=== PATIENT | male | born 1955 | race Caucasian/White ===

== ENCOUNTER 2019-06-17 15:12 | Inpatient (IN) ==
--- NOTE | 2019-06-17 15:51 | Emergency Department Note ---
History of Present Illness General Chief complaint: Abdominal Pain Stated complaint: lower abd pain Time Seen by Provider: 06/17/19 15:18 History of Present Illness Maximum Pain Intensity: 2 63-year-old male who was transported to the emergency department via [facility] ambulance for evaluation of intermittent left lower quadrant abdominal pain. The patient was administered Toradol 15 mg and Zofran 4 mg IVP during transportation, and the patient currently denies any discomfort. The patient reports that his pain is likely secondary to constipation. The patient has not had a bowel movement in the past 2 days. The patient reports that he was treated for an upper respiratory infection 1 month ago and developed an acute thyroiditis. The patient reports that he was treated for his condition, which threw him into a hypothyroid state. His last TSH was 58. He is currently following with Dr. Reyes, skip hoist operator at [facility], who recommended that he avoid treatment with medications for now to see if the patient's thyroid state normalizes. The patient reports that one of the side effects of his condition is constipation that he has been dealing with now a few months. The patient most recently tried a castor oil suppository without relief. He reports using a Dulcolax stool softener 2 days ago that actually soften the stool enough that he had a decent bowel movement. The patient reports that he had a colonoscopy performed 2 to 3 years ago that was completely normal. This was performed by Dr. Nath. The patient is requesting that we minimize cost as much as possible, hopefully to just get an x-ray of the abdomen to confirm that he does have constipation. Home Medications Home Medications Medication Instructions Recorded Confirmed Type cholecalciferol (vitamin D3) 1,000 1,000 units PO QAM 05/12/19 06/17/19 History unit (25 mcg) tablet iron 159 mg PO QAM 06/17/19 06/17/19 History multivitamin 1 tab PO QAM 06/17/19 06/17/19 History ondansetron 4 mg PO Q6H PRN #10 tab 06/17/19 Rx oxycodone 5 mg PO Q4H PRN #15 tab 06/17/19 Rx tamsulosin [Flomax] 0.4 mg PO DAILY #7 cap 06/17/19 Rx turmeric 400 mg PO QAM 06/17/19 06/17/19 History nitrofurantoin macrocrystal 100 mg PO HS #3 cap 06/18/19 Rx phenazopyridine [Pyridium] 100 mg PO TID PRN #18 tab 06/18/19 Rx Allergies Allergy/AdvReac Type Severity Reaction Status Date / Time Quinolones Allergy Mild JOINT PAIN Unverified 05/12/19 10:04 SULFA Allergy Severe unknown Uncoded 05/12/19 10:04 Past Med/Surg History Medical History Abdominal pain History of thyroiditis Hydronephrosis of left kidney Hypothyroidism Surgical History History of colonoscopy History of nasal septoplasty History of oral surgery History of tonsillectomy Family History Family/Other Congestive heart failure Colorectal cancer Father Cardiac disorder Lung cancer Bladder cancer Brother Kidney stones Social History Preferred Language: [place]ian Communication Ability: Effective 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 Beliefs That Will Affect Care: None marital status: Current Living Situation: Spouse current occupational status: retired Feels Safe at Home: Yes Smoking Status: Never smoker Hx Alcohol Use: No Hx Substance Use: No Review of Systems 10 system review was performed and was negative except for pertinent positives and negatives as indicated in history of present illness Physical Exam Vital Signs Vital Signs - 24 hr 06/17/19 20:30 06/17/19 22:03 06/17/19 22:07 Pulse Rate [Finger] 68 71 Pulse Rhythm [Finger] Regular Regular Pulse Strength [Finger] Normal Normal Respiratory Rate 18 20 Respiratory Effort / Characteristics Non-Labored Spontaneous Non-Labored Spontaneous Respiratory Depth Normal Normal Respiratory Pattern Regular Regular Blood Pressure [Right Arm] 152/86 H 130/86 Blood Pressure Mean [Right Arm] 108 100 Blood Pressure Position [Right Arm] Lying Pulse Oximetry 99 99 88 L Oxygen Delivery Method Room Air Room Air Room Air Oxygen Flow Rate 06/17/19 22:08 Pulse Rate [Finger] Pulse Rhythm [Finger] Pulse Strength [Finger] Respiratory Rate Respiratory Effort / Characteristics Respiratory Depth Respiratory Pattern Blood Pressure [Right Arm] Blood Pressure Mean [Right Arm] Blood Pressure Position [Right Arm] Pulse Oximetry 97 Oxygen Delivery Method Nasal Cannula Oxygen Flow Rate 2 CONSTITUTIONAL: Healthy and well nourished. Alert and oriented X 3. Patient does not appear in any acute distress on my exam. HEENT: Normocephalic, atraumatic. Pupils equal, round and reactive. No scleral icterus or conjunctival injection/pallor. NECK: Full active range of motion without discomfort. LYMPHATICS: No cervical chain adenopathy. RESPIRATORY: Clear to auscultation bilaterally with no wheezing, crackles, rhonchi or stridor. CARDIOVASCULAR: Regular rate and rhythm with no murmurs, rubs or gallops. GASTROINTESTINAL: Bowel sounds present in all quadrants. Patient does not have any abdominal tenderness to palpation on exam. Negative CVA tenderness. MUSCULOSKELETAL: Full range of motion of all joints without discomfort. Negative logroll and straight leg raise of the left lower extremity. INTEGUMENTARY: No rash or other significant dermatologic conditions noted. HEMATOLOGIC: No ecchymosis or petechiae. PSYCHIATRIC: Positive affect. NEUROLOGIC: No focal neurologic deficits noted. Course Patient history and physical exam were performed. Nurse's notes were reviewed. Vital signs were reviewed and were normal. As indicated in HPI, the patient was transported here via [facility] ambulance. He was administered IV Toradol and Zofran, and denied any discomfort or nausea at the time of my evaluation. The patient has requested limiting work-up initially to just an x-ray. I did explain other possible conditions that could cause this pain, including diverticulitis, kidney stones or other acute etiologies in the abdomen. I explained that laboratory studies would certainly give me a little more detailed picture of the condition, but agreed that an x-ray could be performed to rule out significant constipation. I did request that the patient provide a urine sample that we can at least rule out hematuria or infection. An abdomen obstruction series does show some stool within the ascending colon, however no significant constipation was noted. Patient also has multiple left-sided phleboliths, and the radiologist could not rule out a possible 5 mm distal left ureteral calculus. At this point, I returned to discuss findings with the patient. He reported that the pain was coming back, and requested additional medication. The patient did not want anything strong, and was therefore administered IV Tylenol. The patient had not provided a urine sample, therefore I did ask him to do so, and the patient was successful in providing a sample. Urine dip was concerning for hematuria and infection. Urine was sent to the lab for microscopy. At this po int, I explained concerning differentials of an infected kidney stone, and recommended additional lab work and an ultrasound of the kidney. The patient was agreeable to this work-up when I discussed the possibilities. Labs were drawn. Official urinalysis shows glucosuria, ketonuria and hematuria without nitrites, leukocyte esterase or bacteria. Review of additional labs shows a mild leukocytosis and creatinine of 1.66. Glucose is also elevated at 156, and potassium is slightly low at 3.4. Retroperitoneal ultrasound confirms left hydronephrosis with a suspected 5 mm distal left ureteral calculus. The patient's nurse did call me, indicating that the patient's IV site infiltrated with the IV Tylenol, and the patient was complaining of worsening pain. At this point, the patient was administered IV morphine. Within 20 minutes of administration of this medication, I reevaluated the patient, and he reported no pain relief, and in fact reported the pain was getting worse. At this point, the patient was administered IV Dilaudid. After approximately 30 minutes, reassessment did not show any significant discomfort. Because it is late and pharmacies are closed, the patient was administered Flomax. I did explain that the patient's initial x-ray showed a possible right mid lung density, and stated that the radiologist recommended oblique views for further characterization. The patient is requesting that we do that in the emergency department as well. Chest x-ray with oblique views did not show any pulmonary nodules. Upon return, the patient reported progressively worsening pain and nausea yet again. He was administered an additional dose of IV Dilaudid. The nurse then called to tell me that he was hypoxic as well in the mid 80s. O2 was administered via nasal cannula at 4 L/min was applied. The patient was saturating in the upper 80s and low 90s. The patient was also administered IV Zofran as he was vomiting as well. It is noted that the patient was not hypote nsive. At this point, the case was further discussed with Dr. Barnes, ED attending physician, who agrees with observation status for intractable renal colic secondary to a distal left ureteral stone, as well as hypoxia. The case was further discussed with Dr. Linares, [facility] hospitalist, who came to the emergency department for further evaluation. Please see hospitalist dictations for further treatment and final disposition. Administered Medications Discontinued Medications Fentanyl Citrate (Fentanyl Citrate) 25 mcg IV Q5M PRN PRN Reason: PACU Use Only-Pain Stop: 06/18/19 15:54 Last Admin: 06/18/19 14:07 Dose: 25 mcg Documented by: [id number] Admin: 06/18/19 14:02 Dose: 25 mcg Documented by: [id number] Hydromorphone HCl (Dilaudid) 0.5 mg IV NOW STA Stop: 06/17/19 18:05 Last Admin: 06/17/19 18:10 Dose: 0.5 mg Documented by: [id number] Hydromorphone HCl (Dilaudid) 0.5 mg IV NOW STA Stop: 06/17/19 20:24 Last Admin: 06/17/19 20:30 Dose: 0.5 mg Documented by: [id number] Acetaminophen (Ofirmev) 1,000 mg in 100 mls @ 400 mls/hr IV NOW STA Stop: 06/17/19 16:41 Last Infusion: 06/17/19 16:50 Dose: 0 mls/hr Documented by: [id number] Admin: 06/17/19 16:35 Dose: 400 mls/hr Documented by: [id number] Sodium Chloride (Nss 1000ml) 1,000 mls @ 999 mls/hr IV .Q1H1M ONE Stop: 06/17/19 17:43 Last Infusion: 06/17/19 18:13 Dose: 0 mls/hr Documented by: [id number] Admin: 06/17/19 17:12 Dose: 999 mls/hr Documented by: [id number] Sodium Chloride (Nss 1000ml) 1,000 mls @ 125 mls/hr IV .Q8H YASMINE Stop: 07/17/19 23:26 Last Infusion: 06/18/19 14:55 Dose: 125 mls/hr Documented by: [id number] Infusion: 06/18/19 12:00 Dose: 0 mls/hr Documented by: [id number] Admin: 06/18/19 07:39 Dose: 125 mls/hr Documented by: [id number] Infusion: 06/18/19 07:39 Dose: 125 mls/hr Documented by: [id number] Admin: 06/17/19 23:42 Dose: 125 mls/hr Documented by: [id number] Cefazolin Sodium (Ancef 2000mg) 2,000 mg in 15 mls @ 3.75 mls/min IV PREOP ONE Stop: 06/18/19 10:10 Last Admin: 06/18/19 12:55 Dose: 3.75 mls/min Documented by: [id number] Iothalamate Meglumine (Cysto-Conray Ii) Confirm Administered Dose 250 ml .ROUTE .STK-MED ONE Stop: 06/18/19 12:40 Last Admin: 06/18/19 13:18 Dose: 8 ml Documented by: [id number] Ketorolac Tromethamine (Toradol) 30 mg IV NOW STA Stop: 06/17/19 21:10 Last Admin: 06/17/19 21:17 Dose: 30 mg Documented by: [id number] Morphine Sulfate (Morphine Sulfate) 4 mg IV NOW STA Stop: 06/17/19 17:46 Last Admin: 06/17/19 17:48 Dose: 4 mg Documented by: [id number] Ondansetron HCl (Zofran Odt 4mg Home Pack) 1 homepack PO NOW ONE Stop: 06/17/19 19:13 Last Admin: 06/17/19 21:17 Dose: Not Given Documented by: [id number] Ondansetron HCl (Zofran) 4 mg IV NOW STA Stop: 06/17/19 21:10 Last Admin: 06/17/19 21:17 Dose: 4 mg Documented by: [id number] Oxycodone HCl (Roxicodone Immediate Rel 5mg Home Pack) 1 homepack PO UD ONE Stop: 06/17/19 19:13 Last Admin: 06/17/19 21:17 Dose: Not Given Documented by: [id number] Tamsulosin HCl (Flomax) 0.4 mg PO NOW ONE Stop: 06/17/19 19:13 Last Admin: 06/17/19 19:51 Dose: 0.4 mg Documented by: [id number] Tamsulosin HCl (Flomax) 0.4 mg PO [facility] Stop: 07/18/19 08:59 Last Admin: 06/18/19 08:21 Dose: 0.4 mg Documented by: [id number] Medical Decision Making Medical Records Attestation: I reviewed the patient's medical records. Home Medications Current Medication List: was personally reviewed by me Laboratory Data Attestation: I reviewed the patient's lab results. Result diagrams: 06/18/19 05:11 06/18/19 05:11 Lab Results 06/17/19 06/17/19 06/17/19 Range/Units 16:30 16:49 16:49 WBC 13.85 H (4.8-10.8) K/uL RBC 4.85 (4.7-6.1) M/uL Hgb 14.3 (14.0-18.0) g/dL Hct 42.2 (42-52) % MCV 87.0 (80-100) fL MCH 29.5 (25-34) pg MCHC 33.9 (32-36) g/dL RDW Std Deviation 48.2 H (36.4-46.3) fL RDW Coeff of Ryan 15.1 H (11.5-14.5) % Plt Count 177 (130-400) K/uL MPV 10.1 (7.4-10.4) fL Immature Gran % (Auto) 0.2 % Neut % (Auto) 91.0 % Lymph % (Auto) 5.8 % [place] % (Auto) 2.9 % Eos % (Auto) 0.0 % Baso % (Auto) 0.1 % Immature Gran # (Auto) 0.03 H (0.00-0.02) K/uL Neut # (Auto) 12.59 H (1.4-6.5) K/uL Lymph # (Auto) 0.81 L (1.2-3.4) K/uL [place] # (Auto) 0.40 (0.11-0.59) K/uL Eos # (Auto) 0.00 (0-0.5) K/uL Baso # (Auto) 0.02 (0-0.2) K/uL Sodium 137 (136-145) mmol/L Potassium 3.4 L (3.5-5.1) mmol/L Chloride 106 (98-107) mmol/L Carbon Dioxide 25 (21-32) mmol/L Anion Gap 6.0 (3-11) BUN 16 (7-18) mg/dl Creatinine 1.66 H (0.6-1.4) mg/dl Est Cr Clr Drug Dosing 48.3 ml/min Est GFR ( Amer) 50.8 Est GFR (Non-Af Amer) 43.8 BUN/Creatinine Ratio 9.9 L (10-20) Glucose 156 H (70-99) mg/dl Calcium 8.6 (8.5-10.1) mg/dl Total Bilirubin 1.1 H (0.2-1) mg/dl AST 20 (15-37) U/L ALT 34 (12-78) U/L Alkaline Phosphatase 98 (45-117) U/L Total Protein 6.9 (6.4-8.2) gm/dl Albumin 3.5 (3.4-5.0) gm/dl Globulin 3.4 (2.5-4.0) gm/dl Albumin/Globulin Ratio 1.0 (0.9-2) Urine Color Dark Yellow Urine Appearance Clear (Clear) Urine pH 5.0 (4.5-7.5) Ur Specific [place] 1.019 (1.000-1.030) Urine Protein Negative (Negative) Urine Glucose (UA) 2+ H (Negative) Urine Ketones 1+ H (Negative) Urine Blood 2+ H (Negative) Urine Nitrite Negative (Negative) Urine Bilirubin Negative (Negative) Urine Urobilinogen Negative (Negative) Ur Leukocyte Esterase Negative (Negative) Urine WBC (Auto) 1-5 (0-5) /hpf Urine RBC (Auto) 5-10 H (0-4) /hpf U Hyaline Cast (Auto) 0 (0-5) /lpf U Epithel Cells (Auto) 0-5 (0-5) /lpf Urine Bacteria (Auto) Negative (Negative) Imaging Data Attestation: I personally reviewed and interpreted this imaging study as follows: My Impression: My interpretation of an abdomen obstruction series does show some stool within the ascending colon, otherwise no significant fecal load or obstructive pattern noted. The patient does have left bladder phleboliths, with radiologist suggesting that one of these could certainly be a distal left ureteral calculus. Retroperitoneal ultrasound also showed mild left hydronephrosis and 5 mm distal left ureteral calculus. 2 view chest x-ray with oblique views did not show any right mid lung nodule that was seen on the initial abdomen obstruction series. Radiologist reports were reviewed. Radiologist's Impression: PA CHEST RADIOGRAPH AND UPRIGHT AND SUPINE AP RADIOGRAPHS OF THE ABDOMEN CLINICAL HISTORY: Abdominal pain. Constipation. COMPARISON STUDY: Chest radiograph May 04, 2019. FINDINGS: There is no pneumothorax or pleural effusion. There is no evidence for pulmonary edema or pneumonia. Cardiac size is normal. Mediastinal contours are normal. A 1.1 cm nodular right midlung density is probably artifactual. There is no free air. Pelvic calcifications favor phleboliths. However, a 5 mm distal left ureteral calculus cannot be entirely excluded. There is no evidence for a bowel obstruction. Amount of stool within the colon and rectum is within normal limits. IMPRESSION: 1. No free air or evidence of bowel obstruction. Unremarkable amount of stool. 2. Pelvic calcifications which favor phleboliths however a 5 mm distal left ureteral calculus cannot be excluded. 3. 1.1 cm nodular right midlung density which likely reflects summation artifact. Follow-up nonemergent shallow oblique radiographs of the chest are recommended to exclude a pulmonary nodule. RENAL ULTRASOUND CLINICAL HISTORY: LLQ abd pain - UTI w/ possible stone COMPARISON STUDY: KUB performed earlier today. TECHNIQUE: Sonography of the kidneys and the urinary bladder was performed. FINDINGS: Right kidney measures 11.5 cm in maximal dimension and the left measures 12.8 cm. There is no right hydronephrosis. Note is made of mild left hydronephrosis with a suspected 5 mm distal left ureteral calculus. This is located at the ureterovesical junction. The left ureteral jet was not visualized. Renal echogenicity, size and cortical thickness are normal. IMPRESSION: Mild left hydronephrosis due to a suspected 5 mm distal left ureteral calculus, located at the ureterovesical junction. XR chest PA, lat, obliques CLINICAL HISTORY: Possible R pulmonary nodule COMPARISON STUDY: Chest radiograph May 04, 2019. Abdominal series and chest radiograph performed earlier today FINDINGS: Lung volumes are normal. Lungs are clear. There is no pneumothorax or pleural effusion. Cardiac size is normal. Mediastinal contours are normal. There is no evidence for pulmonary edema. The possible right lung nodule on chest radiograph performed earlier today is not confirmed on this exam. This was artifactual. IMPRESSION: No pulmonary nodules by radiography. The possible right lung nodule on chest radiograph performed earlier today was artifactual. Prescription Drug Monitoring [place] Drug Monitoring Program reviewed and no issues identified Blood Pressure Blood Pressure Findings: Elevated blood pressure Blood Pressure Disposition: elevated BP felt to be situational MDM Narrative Patient presents the emergency department with complaint of left abdominal pain that the patient initially thought was secondary to constipation secondary to hypothyroidism. Further work-up today shows evidence of a distal left ureteral calculus. There is no sign of infection on urinalysis. The patient does have a mild leukocytosis which is likely stress-induced, and also has a mildly elevated creatinine that should have been corrected with IV hydration. The patient has remained afebrile while in the emergency department. Work-up today was quite lengthy as the patient initially wanted to limit cost of his work-up as he is se lf-pay, but as additional abnormal findings were discovered, the patient did eventually require a work-up with lab work and additional imaging studies. The patient does have intractable pain, along with hypoxia from pain management, warranting overnight observation. Impression & Plan Calculus of distal left ureter, Intractable abdominal pain, Hypoxia Discharge Plan Visit Data *Final* Discharge Date/Time: 06/17/19 23:10 Chief Complaint: Abdominal Pain Stated Complaint: lower abd pain ED Provider: Gibson Barnes ED Midlevel Provider: Martinez Lindsey Discharge Problem: Calculus of distal left ureter, Intractable abdominal pain, Hypoxia Patient Disposition: Admitted As Inpatient Discharge Instructions Interventions: ED Discharge Assessment Last Done: 06/17/19 23:10
--- NOTE | 2019-06-17 16:13 | XRay Report ---
PA CHEST RADIOGRAPH AND UPRIGHT AND SUPINE AP RADIOGRAPHS OF THE ABDOMEN CLINICAL HISTORY: Abdominal pain. Constipation. COMPARISON STUDY: Chest radiograph May 04, 2019. FINDINGS: There is no pneumothorax or pleural effusion. There is no evidence for pulmonary edema or pneumonia. Cardiac size is normal. Mediastinal contours are normal. A 1.1 cm nodular right midlung de nsity is probably artifactual. There is no free air. Pelvic calcifications favor phleboliths. However , a 5 mm distal left ureteral calculus cannot be entirely excluded. There is no evidence for a bowel obstruction. Amount of stool within the colon and rectum is within normal limits. IMPRESSION: 1. No free air or evidence of bowel obstruction. Unremarkable amount of stool. 2. Pelvic calcifications which favor phleboliths however a 5 mm distal left ureteral calculus cannot be excluded. 3. 1.1 cm nodular right midlung density which likely reflects summation artifact. Follow-up nonemerge nt shallow oblique radiographs of the chest are recommended to exclude a pulmonary nodule. Electronically signed by: Pacheco Kee M.D. 06/17/2019 4:11 PM
[2019-06-17] MEDS ORDERED: ACETAMINOPHEN 1,000 MG/100 ML VIAL IV STA (16:27)
[2019-06-17] MEDS ORDERED: SODIUM CHLORIDE 0.9% 1000ML 1,000 ML IV ONE (16:43)
[2019-06-17 16:49] LABS: Appearance Urine Clear (Clear); Bacteria Urine Automated Negative (Negative); Bilirubin Urine Negative (Negative); Blood Urine 2+ (Negative); Cast Urine Automated 0 /lpf (0-5); Color Urine Dark Yellow; Epithelial Cell Urine Auto 0-5 /lpf (0-5); Glucose Urine UA 2+ (Negative); Ketones Urine 1+ (Negative); Leukocyte Esterase Urine Negative (Negative); Nitrite Urine Negative (Negative); Protein Urine Negative (Negative); Specific Gravity Urine 1.019 (1.000-1.030); Urobilinogen Urine Negative (Negative)
[2019-06-17 17:12] LABS: Basophils # (auto) 0.02 K/uL (0-0.2); Basophils % (auto) 0.1 %; Hematocrit (blood only) 42.2 % (42-52); Hemoglobin 14.3 g/dL (14.0-18.0); Immature Granulocytes # (auto) 0.03 K/uL (0.00-0.02); Immature Granulocytes % (auto) 0.2 %; Lymphocytes # (auto) 0.81 K/uL (1.2-3.4); Lymphocytes % (auto) 5.8 %; Mean Corpuscular Hemoglobin 29.5 pg (25-34); Mean Corpuscular Hgb Conc 33.9 g/dL (32-36); Mean Platelet Volume 10.1 fL (7.4-10.4); Monocytes % (auto) 2.9 %; Neutrophils # (auto) 12.59 K/uL (1.4-6.5); Platelet Count 177 K/uL (130-400); RDW Coefficient of Variation 15.1 % (11.5-14.5); RDW Standard Deviation 48.2 fL (36.4-46.3); Red Blood Count 4.85 M/uL (4.7-6.1); White Blood Count 13.85 K/uL (4.8-10.8)
[2019-06-17 17:40] LABS: Albumin Level 3.5 gm/dl (3.4-5.0); BUN Creatinine Ratio 9.9 (10-20); Calcium 8.6 mg/dl (8.5-10.1); Creatinine Clr Calc Pharmacy 48.3 ml/min; Est GFR (African American) 50.8; Est GFR (Non-African American) 43.8; Potassium 3.4 mmol/L (3.5-5.1)
[2019-06-17 17:43] LABS: Bilirubin,Total 1.1 mg/dl (0.2-1); Globulin 3.4 gm/dl (2.5-4.0); Total Protein 6.9 gm/dl (6.4-8.2)
[2019-06-17] MEDS ORDERED: MoRPHine SULFATE 4 MG/ML 1 ML CARP\\VIAL IV STA (17:45)
--- NOTE | 2019-06-17 17:52 | Ultrasound Report ---
RENAL ULTRASOUND CLINICAL HISTORY: LLQ abd pain - UTI w/ possible stone COMPARISON STUDY: KUB performed earlier today. TECHNIQUE: Sonography of the kidneys and the urinary bladder was performed. FINDINGS: Right kidney measures 11.5 cm in maximal dimension and the left measures 12.8 cm. There is no right hydronephrosis. Note is made of mild left hydronephrosis with a suspected 5 mm distal left u reteral calculus. This is located at the ureterovesical junction. The left ureteral jet was not visua lized. Renal echogenicity, size and cortical thickness are normal. IMPRESSION: Mild left hydronephrosis due to a suspected 5 mm distal left ureteral calculus, located at the ureter ovesical junction. Electronically signed by: Pacheco Kee M.D. 06/17/2019 5:51 PM
[2019-06-17] MEDS ORDERED: HYDROmorphone INJ 0.5 MG/0.5 ML SYR IV STA ×2 (18:04→20:23)
[2019-06-17] MEDS ORDERED: ONDANSETRON HOME PACK 4MG OD TAB PO ONE (19:12)
[2019-06-17] MEDS ORDERED: TAMSULOSIN HCL 0.4 MG CAP PO ONE (19:12)
[2019-06-17] MEDS ORDERED: OXYCODONE IR HOME PACK PO ONE (19:12)
--- NOTE | 2019-06-17 20:01 | XRay Report ---
XR chest PA, lat, obliques CLINICAL HISTORY: Possible R pulmonary nodule COMPARISON STUDY: Chest radiograph May 04, 2019. Abdominal series and chest radiograph perform ed earlier today FINDINGS: Lung volumes are normal. Lungs are clear. There is no pneumothorax or pleural effusion. Car diac size is normal. Mediastinal contours are normal. There is no evidence for pulmonary edema. The p ossible right lung nodule on chest radiograph performed earlier today is not confirmed on this exam. This was artifactual. IMPRESSION: No pulmonary nodules by radiography. The possible right lung nodule on chest radiograph performed earlier today was artifactual. Electronically signed by: Pacheco Kee M.D. 06/17/2019 8:00 PM
[2019-06-17] MEDS ORDERED: KETOROLAC 30 MG/ML VIAL IV STA (21:09)
[2019-06-17] MEDS ORDERED: ONDANSETRON INJ 2 MG/ML 2 ML VIAL IV STA (21:09)
--- NOTE | 2019-06-17 23:16 | History & Physical Report ---
Date of Service June 17, 2019 Assessment & Plan (1) Calculus of distal left ureter: 63-year-old male without significant past medical history except for recent bout of thyroiditis and subsequent hypothyroidism presents with intractable left abdominal pain. He was found to have a 5 mm obstructing urethral stone and left hydronephrosis. His pain was adequately treated in the emergency room, but the patient did develop hypoxia. He was given supplemental oxygen and observed. Admit to med/telemetry. Left ureteral stone, left hydronephrosis Treating supportivelyfluids, pain control Admit to med/telemetry secondary to hypoxia following pain medications continue supplemental oxygen Percocet for mild to moderate pain scale 1-5, Dilaudid for moderate to severe pain scale 6-10 Scheduled Toradol, PRN Tylenol Urology consult, appreciate recommendations Hypothyroidism status post thyroiditis Treat constipation, MiraLAX as needed CODE STATUSfull Dietn.p.o. DVT prophylaxisSCDs, encourage ambulation (2) Intractable abdominal pain: (3) Hypoxia: (4) Constipation: (5) Hypothyroidism: History of Present Illness Primary Care Provider: Stone Reza MD 63-year-old male with a recent history of thyroiditis presents with left-sided abdominal pain over the course of 1 day. Patient thought this was acute constipation in the setting of hypothyroidism. In the ED, he was found to have left hydronephrosis with a 5 mm stone. He denies any dysuria or hematuria. He denies fevers, nausea, vomiting or diarrhea. He does not have a history of kidney stones, but describes a family history of kidney stones. He is otherwise healthy and does not take many medications. He describes being diagnosed with thyroiditis sometime in the middle of April. He was initially treated for a sinus infection and subsequently found to have an enlarged swollen thyroid. He experienced thyroid storm without need for hospitalization and has subsequently been seen by endocrinology in [place]. He is not on thyroid medications as they see his hypothyroidism as a temporary phase of the illness course. Review of systems Patient denies fevers, chills, night sweats, shortness of breath, cough, chest pain, abdominal pain, nausea/vomiting/diarrhea, dysuria, hematuria Allergies Allergy/AdvReac Type Severity Reaction Status Date / Time Quinolones Allergy Mild JOINT PAIN Unverified 05/12/19 10:04 SULFA Allergy Severe unknown Uncoded 05/12/19 10:04 Home Medications Home Medications Medication Instructions Recorded Confirmed Type cholecalciferol (vitamin D3) 1,000 1,000 units PO QAM 05/12/19 06/17/19 History unit (25 mcg) tablet iron 159 mg PO QAM 06/17/19 06/17/19 History multivitamin 1 tab PO QAM 06/17/19 06/17/19 History ondansetron 4 mg PO Q6H PRN #10 tab 06/17/19 Rx oxycodone 5 mg PO Q4H PRN #15 tab 06/17/19 Rx tamsulosin [Flomax] 0.4 mg PO DAILY #7 cap 06/17/19 Rx turmeric 400 mg PO QAM 06/17/19 06/17/19 History nitrofurantoin macrocrystal 100 mg PO HS #3 cap 06/18/19 Rx phenazopyridine [Pyridium] 100 mg PO TID PRN #18 tab 06/18/19 Rx Past Med/Surg History Medical History Abdominal pain History of thyroiditis Hydronephrosis of left kidney Hypothyroidism Surgical History History of colonoscopy History of nasal septoplasty History of oral surgery History of tonsillectomy Family History Family/Other Congestive heart failure Colorectal cancer Father Cardiac disorder Lung cancer Bladder cancer Brother Kidney stones Social History Preferred Language: Italian Communication Ability: Effective 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: No Beliefs That Will Affect Care: None marital status: Current Living Situation: Spouse current occupational status: retired Feels Safe at Home: Yes Smoking Status: Never smoker Hx Alcohol Use: No Hx Substance Use: No Review of Systems Review of Systems: All systems reviewed & are unremarkable except as noted in HPI & below Physical Exam Constitutional: WD/WN, vitals as above Eyes: PERRL, conjunctivae normal, anicteric sclerae ENMT: external ear and nose normal, oropharynx normal Neck: trachea midline, no thyromegaly Respiratory: normal respiratory effort, lungs clear to auscultation Cardiovascular: RRR, no murmur, no edema Gastrointestinal (Abdomen): normal bowel sounds, soft, nontender, no hepatosplenomegaly Musculoskeletal: no cyanosis or clubbing, extremities motor strength 5/5 Skin: no rashes, warm and dry Neurologic: PERRL, EOMI, accommodation nl, no face palsy, no dysarthria Psychiatric: A+Ox3, euthymic affect Results & Data Vital Signs (Past 12 Hours) Vital Signs Temp Pulse Pulse Resp BP BP Pulse Ox 06/17/19 22:08 97 06/17/19 22:07 88 L 06/17/19 22:03 71 20 130/86 99 06/17/19 20:30 68 18 152/86 H 99 06/17/19 19:48 76 18 135/83 99 06/17/19 17:48 83 18 142/78 H 98 06/17/19 17:10 76 16 148/83 H 98 06/17/19 15:19 36.4 C L 79 16 130/69 98 Code Status & VTE Plan Code Status Full code VTE Prophylaxis Plan VTE Prophylaxis will be ordered: Yes Supervising Physician Co-Signing Physician Notes patient seen and examined, chart reviewed, case discussed with Dr. Rand and I agree with his assessment and plan as documented above. Patient feeling much better this AM. Pain resolved. He thinks he may have passed the stone. Exam unremarkable Labs and images reviewed Plan as above. PG Care Time/CCT Total # of Minutes Spent Total Time Spent with Patient: Total time spent is greater than 50% in coordination of care (as documented) at patient's floor/unit and/or counseling patient: Resident Activity Tracking Resident Involvement: Resident Care Provided Care Provided: Adult Hospital Medicine
[2019-06-17] MEDS ORDERED: OXYCODONE/ACETAMINOPHEN 5mg/325mg TAB PO PRN (23:27)
[2019-06-17] MEDS ORDERED: HYDROmorphone INJ 0.5 MG/0.5 ML SYR IV PRN (23:27)
[2019-06-17] MEDS ORDERED: POLYETHYLENE (MIRALAX) 17 GM PACK PO PRN (23:27)
[2019-06-17] MEDS ORDERED: KETOROLAC TROMETHAMINE 15 MG/ML VIAL IV PRN (23:27)
[2019-06-17] MEDS ORDERED: ACETAMINOPHEN 325 MG TAB PO PRN (23:27)
[2019-06-17] MEDS: SODIUM CHLORIDE 0.9% 1000ML 1,000 ML IV SCH (23:42)
--- NOTE | 2019-06-18 02:22 | Urology Consultation ---
Date of Consultation June 18, 2019 Assessment & Plan (1) Calculus of distal left ureter: A/P 63-year-old male with suspected left renal colic due to distal ureteral stone. Patient's clinical course and findings are indeed consistent with colic from a left ureteral stone which has possibly passed into the bladder. We will recheck a KUB for stone position later on this morning. However, even if the stone remains within the distal ureter, should the patient remained symptomatically im proved and a trial of medical therapy and expulsion can be considered. Patient would prefer to avoid acute surgical intervention if possible. Outpatient lithotripsy can also be considered depending on imaging findings and symptom control. We will leave patient n.p.o. for the time being until a.m. imaging can be reassessed. Patient vocalizes good understanding of the treatment plan. Will strain urine for possible stone collection. Thank you for allowing us to participate in this patient's acute care. Please contact our service with any questions or concerns. History of Present Illness Reason for Consultation: Left-sided flank pain with suspected left 5 mm distal ureteral stone. Attending Physician: Lilly Linares DO History of Present Illness 63-year-old male who was admitted for left-sided flank pain which is suspected to be from a left-sided ureteral stone. Patient has not had CT scan imaging done due to a desire to limit testing but renal ultrasound demonstrated left- sided hydronephrosis and KUB at the time of admission demonstrated a suspected left distal ureteral stone as well as left pelvic calcifications consistent with phleboliths. Patient reports an abrupt and to his pain starting at 9 PM with no further discomfort or pelvic pressure since. He denies stone passage but also has not voided since the cessation of his discomfort. He suspects his stone might of passed into his bladder. He is resting comfortably with family in the room. Urology consultation is sought out to assist with the patient's acute care. This is his initial stone episode. Allergies Allergy/AdvReac Type Severity Reaction Status Date / Time Quinolones Allergy Mild JOINT PAIN Unverified 05/12/19 10:04 SULFA Allergy Severe unknown Uncoded 05/12/19 10:04 Home Medications Home Medications Medication Instructions Recorded Confirmed Type cholecalciferol (vitamin D3) 1,000 1,000 units PO QAM 05/12/19 06/17/19 History unit (25 mcg) tablet iron 159 mg PO QAM 06/17/19 06/17/19 History multivitamin 1 tab PO QAM 06/17/19 06/17/19 History ondansetron 4 mg PO Q6H PRN #10 tab 06/17/19 Rx oxycodone 5 mg PO Q4H PRN #15 tab 06/17/19 Rx tamsulosin [Flomax] 0.4 mg PO DAILY #7 cap 06/17/19 Rx turmeric 400 mg PO QAM 06/17/19 06/17/19 History Patient History Medical History Abdominal pain History of thyroiditis Hydronephrosis of left kidney Hypothyroidism Surgical History History of colonoscopy History of nasal septoplasty History of oral surgery History of tonsillectomy Family History Family/Other Congestive heart failure Colorectal cancer Father Cardiac disorder Lung cancer Bladder cancer Brother Kidney stones Social History Preferred Language: Austrian Communication Ability: Effective Box Maker Wood Required: No Beliefs That Will Affect Care: None marital status: Current Living Situation: Spouse current occupational status: retired Feels Safe at Home: Yes Safety Concerns: Feels Safe At This Time Smoking Status: Never smoker Hx Alcohol Use: No Hx Substance Use: No Review of Systems Constitutional: no fever and no chills Eyes: no diplopia Ear, Nose, Mouth, Throat: no ear trauma Respiratory: no hemoptysis Cardiovascular: no chest pain Gastrointestinal: + abdominal pain Integumentary: no acne and no boil Neurologic: no paralysis Psychiatric: no hopelessness Hematologic / Lymphatic: no easy bleeding Allergy / Immunological: no tongue swelling Physical Exam Constitutional: well developed and well nourished; no acute distress Eyes: eyes not dysmorphic ENMT: Ears: no external ear abnormality Neck: trachea midline; no anterior neck swelling Respiratory: no respiratory distress and does not use accessory muscles Cardiovascular: Vessels: radial pulses present Gastrointestinal (Abdomen): Inspection/Auscultation: abdomen not distended Percussion/Palpation: abdomen soft; abdomen nontender Musculoskeletal: Head/Neck/Chest: normocephalic and neck supple Skin: normal turgor Neurologic: awake; not obtunded Psychiatric: Orientation: oriented x 3 Lymphatic: no lymphadenopathy Results & Data Vital Signs (Past 12 Hours) Vital Signs Temp Pulse Pulse Resp BP BP Pulse Ox 06/18/19 00:50 84 06/17/19 23:53 36.7 C 79 18 156/79 H 99 06/17/19 23:47 06/17/19 23:00 73 20 129/72 100 06/17/19 22:08 97 06/17/19 22:07 88 L 06/17/19 22:03 71 20 130/86 99 06/17/19 20:30 68 18 152/86 H 99 06/17/19 19:48 76 18 135/83 99 06/17/19 17:48 83 18 142/78 H 98 06/17/19 17:10 76 16 148/83 H 98 06/17/19 15:19 36.4 C L 79 16 130/69 98 Pulse Ox 06/18/19 00:50 06/17/19 23:53 06/17/19 23:47 98 06/17/19 23:00 06/17/19 22:08 06/17/19 22:07 06/17/19 22:03 06/17/19 20:30 06/17/19 19:48 06/17/19 17:48 06/17/19 17:10 06/17/19 15:19 Laboratory Results Laboratory Results - last 48 hr 06/17/19 06/17/19 06/17/19 16:30 16:49 16:49 WBC 13.85 H RBC 4.85 Hgb 14.3 Hct 42.2 MCV 87.0 MCH 29.5 MCHC 33.9 RDW Std Deviation 48.2 H RDW Coeff of Ryan 15.1 H Plt Count 177 MPV 10.1 Immature Gran % (Auto) 0.2 Neut % (Auto) 91.0 Lymph % (Auto) 5.8 [place] % (Auto) 2.9 Eos % (Auto) 0.0 Baso % (Auto) 0.1 Immature Gran # (Auto) 0.03 H Neut # (Auto) 12.59 H Lymph # (Auto) 0.81 L [place] # (Auto) 0.40 Eos # (Auto) 0.00 Baso # (Auto) 0.02 Sodium 137 Potassium 3.4 L Chloride 106 Carbon Dioxide 25 Anion Gap 6.0 BUN 16 Creatinine 1.66 H Est Cr Clr Drug Dosing 48.3 Est GFR ( Amer) 50.8 Est GFR (Non-Af Amer) 43.8 BUN/Creatinine Ratio 9.9 L Glucose 156 H Calcium 8.6 Total Bilirubin 1.1 H AST 20 ALT 34 Alkaline Phosphatase 98 Total Protein 6.9 Albumin 3.5 Globulin 3.4 Albumin/Globulin Ratio 1.0 Urine Color Dark Yellow Urine Appearance Clear Urine pH 5.0 Ur Specific [place] 1.019 Urine Protein Negative Urine Glucose (UA) 2+ H Urine Ketones 1+ H Urine Blood 2+ H Urine Nitrite Negative Urine Bilirubin Negative Urine Urobilinogen Negative Ur Leukocyte Esterase Negative Urine WBC (Auto) 1-5 Urine RBC (Auto) 5-10 H U Hyaline Cast (Auto) 0 U Epithel Cells (Auto) 0-5 Urine Bacteria (Auto) Negative PG Care Time/CCT Total # of Minutes Spent Total Time Spent with Patient: Total time spent is greater than 50% in coordination of care (as documented) at patient's floor/unit and/or counseling patient:
[2019-06-18 06:17] LABS: Basophils # (auto) 0.01 K/uL (0-0.2); Basophils % (auto) 0.1 %; Eosinophils # (auto) 0.02 K/uL (0-0.5); Eosinophils % (auto) 0.2 %; Hematocrit (blood only) 39.3 % (42-52); Hemoglobin 12.8 g/dL (14.0-18.0); Immature Granulocytes # (auto) 0.01 K/uL (0.00-0.02); Immature Granulocytes % (auto) 0.1 %; Lymphocytes # (auto) 1.38 K/uL (1.2-3.4); Lymphocytes % (auto) 14.2 %; Mean Corpuscular Hemoglobin 28.6 pg (25-34); Mean Corpuscular Hgb Conc 32.6 g/dL (32-36); Mean Corpuscular Volume 87.9 fL (80-100); Mean Platelet Volume 10.6 fL (7.4-10.4); Monocytes # (auto) 0.32 K/uL (0.11-0.59); Monocytes % (auto) 3.3 %; Neutrophils % (auto) 82.1 %; Platelet Count 188 K/uL (130-400); RDW Coefficient of Variation 15.2 % (11.5-14.5); RDW Standard Deviation 48.9 fL (36.4-46.3); Red Blood Count 4.47 M/uL (4.7-6.1); White Blood Count 9.74 K/uL (4.8-10.8)
[2019-06-18 06:47] LABS: BUN Creatinine Ratio 9.6 (10-20); Calcium 8.2 mg/dl (8.5-10.1); Est GFR (African American) 89.4; Est GFR (Non-African American) 77.1
[2019-06-18] MEDS: SODIUM CHLORIDE 0.9% 1000ML 1,000 ML IV SCH (07:39)
--- NOTE | 2019-06-18 08:20 | XRay Report ---
XR KUB/Abdomen 1 view CLINICAL HISTORY: stone nephrocalcinosis COMPARISON STUDY: 06/17/2019 FINDINGS: Similar calcification overlying the distal left ureter. No change in position compared to t he prior study. Nonobstructive bowel pattern. Minimal nonobstructive ileus. IMPRESSION: Unchanged calcification overlying the distal aspect left ureter. No change from the prio r exam with findings suggestive of either distal left ureteral calculus versus vascular calcification The above report was generated using voice recognition software. It may contain grammatical, syntax or spelling errors. Electronically signed by: Garett De La Cruz M.D. 06/18/2019 8:19 AM
[2019-06-18] MEDS ORDERED: TAMSULOSIN HCL 0.4 MG CAP PO SCH (09:00)
[2019-06-18] MEDS ORDERED: CEFAZOLIN 2000MG 2,000 MG/15 ML SYR IV ONE (10:07)
--- NOTE | 2019-06-18 10:09 | Progress Note ---
Date of Service June 18, 2019 Subjective AM round note: KUB images reviewed with stone - no progress in suspected stone, still with some LLQ discomfort, no stones passed. Lengthy discussion regarding various options - MET, outpatient ESWL or acute management. Opts for lattermost - will add on for cystoscopy, left retrograde pyelography, left ureteroscopy, laser lithotripsy, basket stone extraction and stent. Will leave string on stent as patient is concerned re: costs of removal with cysto being ortega pain. Ancef live in companion to OR, will obtain consent in preop area. Patient and family vocalize understanding of the plan, queries answered. Results & Data Vital Signs (Past 12 Hours) Vital Signs Temp Pulse Pulse Resp BP Pulse Ox Pulse Ox 06/18/19 08:02 37.0 C 88 18 127/77 96 06/18/19 04:00 36.9 C 89 20 118/58 L 96 06/18/19 00:50 84 06/17/19 23:53 36.7 C 79 18 156/79 H 99 06/17/19 23:47 98 06/17/19 23:00 73 20 129/72 100 06/17/19 22:08 97 PG Care Time/CCT Total # of Minutes Spent Total Time Spent with Patient: Total time spent is greater than 50% in coordination of care (as documented) at patient's floor/unit and/or counseling patient:
--- NOTE | 2019-06-18 10:52 | Anesthesiology Consultation ---
Date of Service June 18, 2019 Assessment & Plan (1) Encounter for pre-operative examination: Chart Review Chart Review: Acceptable Risk for Surgery (needs preop ecg) History Surgery Operation Date: 06/18/19 13:00 Proposed Procedures p Ureteral Stent Insertion/Removal - Elmer Brizuela MD Height/Weight Height: 5 ft 10 in Weight: 76.8 kg Allergies Allergy/AdvReac Type Severity Reaction Status Date / Time Quinolones Allergy Mild JOINT PAIN Unverified 05/12/19 10:04 SULFA Allergy Severe unknown Uncoded 05/12/19 10:04 Medications Home Medications Medication Instructions Recorded Confirmed Last Taken cholecalciferol (vitamin D3) 1,000 1,000 units PO QAM 05/12/19 06/17/19 06/17/19 unit (25 mcg) tablet iron 159 mg PO QAM 06/17/19 06/17/19 06/17/19 multivitamin 1 tab PO QAM 06/17/19 06/17/19 06/17/19 ondansetron 4 mg PO Q6H PRN #10 tab 06/17/19 Unknown oxycodone 5 mg PO Q4H PRN #15 tab 06/17/19 Unknown tamsulosin [Flomax] 0.4 mg PO DAILY #7 cap 06/17/19 Unknown turmeric 400 mg PO QAM 06/17/19 06/17/19 06/17/19 Active Medications Generic Name Dose Route Start Last Admin Trade Name Freq PRN Reason Stop Dose Admin Sodium Chloride 1,000 mls @ 125 mls/hr 06/17/19 23:27 06/18/19 07:39 Nss 1000ml IV 07/17/19 23:26 125 mls/hr .Q8H YASMINE Administration Tamsulosin HCl 0.4 mg 06/18/19 09:00 06/18/19 08:21 Flomax PO 07/18/19 08:59 0.4 mg QAM YASMINE Administration NPO Date Last Intake of Fluids: 06/17/19 Time Last Intake of Fluids: 23:50 Date Last Intake of Solids: 06/17/19 Time Last Intake of Solids: 23:50 Past Medical History Medical History Abdominal pain History of thyroiditis Hydronephrosis of left kidney Hypothyroidism Past Family History Family History Family/Other Congestive heart failure Colorectal cancer Father Cardiac disorder Lung cancer Bladder cancer Brother Kidney stones Past Surgical History Surgical History History of colonoscopy History of nasal septoplasty History of oral surgery History of tonsillectomy Social History Smoking Status: Never smoker Hx Alcohol Use: No Hx Substance Use: No Physical Exam Vital Signs Last Vital Signs Temp 37.0 C 06/18/19 08:02 Pulse 88 06/18/19 08:02 Resp 18 06/18/19 08:02 BP 127/77 06/18/19 08:02 Pulse Ox 96 06/18/19 08:02 Testing Laboratory Results 06/18/19 05:11 06/18/19 05:11 Urine Color Dark Yellow 06/17/19 16:30 Urine Appearance Clear (Clear) 06/17/19 16:30 Urine pH 5.0 (4.5-7.5) 06/17/19 16:30 Ur Specific [place] 1.019 (1.000-1.030) 06/17/19 16:30 Urine Protein Negative (Negative) 06/17/19 16:30 Urine Glucose (UA) 2+ (Negative) H 06/17/19 16:30 Urine Ketones 1+ (Negative) H 06/17/19 16:30 Urine Nitrite Negative (Negative) 06/17/19 16:30 Ur Leukocyte Esterase Negative (Negative) 06/17/19 16:30 Urine WBC (Auto) 1-5 /hpf (0-5) 06/17/19 16:30 Urine RBC (Auto) 5-10 /hpf (0-4) H 06/17/19 16:30 U Hyaline Cast (Auto) 0 /lpf (0-5) 06/17/19 16:30 U Epithel Cells (Auto) 0-5 /lpf (0-5) 06/17/19 16:30 Urine Bacteria (Auto) Negative (Negative) 06/17/19 16:30
[2019-06-18] MEDS ORDERED: ONDANSETRON INJ 2 MG/ML 2 ML VIAL IV PRN ×2 (10:54→12:13)
[2019-06-18] MEDS ORDERED: ATROPINE SULFATE 0.1 MG/ML 10ML SYR IV PRN ×2 (10:54→12:13)
[2019-06-18] MEDS ORDERED: fentaNYL citrate 100 MCG/2 ML VIAL IV PRN (12:13)
[2019-06-18] MEDS ORDERED: KETOROLAC 30 MG/ML VIAL IV PRN (12:13)
[2019-06-18] MEDS ORDERED: LIDOCAINE HCL 2% 2 ML VIAL/AMP(20MG/ML) INFIL ONE (12:33)
[2019-06-18] MEDS ORDERED: ONDANSETRON INJ 2 MG/ML 2 ML VIAL ONE (12:33)
[2019-06-18] MEDS ORDERED: PROPOFOL IV EMULSION 10 MG/ML 20 ML VIAL IV ONE (12:33)
[2019-06-18] MEDS ORDERED: DEXAMETHASONE SOD INJ 4 MG/ML VIAL ONE (12:33)
[2019-06-18] MEDS ORDERED: fentaNYL citrate 100 MCG/2 ML VIAL ONE (12:34)
[2019-06-18] MEDS ORDERED: MIDAZOLAM HCL 1 MG/ML 2ML VIAL ONE (12:34)
[2019-06-18] MEDS ORDERED: IOTHALAMATE MEGLUMINE II 17.2% 250 ML VIAL ONE (12:39)
[2019-06-18] MEDS ORDERED: PHENYLEPHRINE 100MCG/ML 5ML SYR ONE (13:17)
[2019-06-18] MEDS ORDERED: CEFAZOLIN 250 MG/ML 1 GM VIAL ONE (13:19)
[2019-06-18] MEDS ORDERED: KETOROLAC 30 MG/ML VIAL ONE (13:28)
--- NOTE | 2019-06-18 13:33 | Operative Report ---
PG Post Operative Report Pre & Post Diagnosis Operation Date: 06/18/19 13:00 Pre-Op Diagnosis: left distal ureteral stone with intractable colic Post-Op Diagnosis: left distal ureteral stone with intractable colic Anesthesia: General anesthesia with laryngeal mask. Drains left in place: 6 [place] 28 cm left-sided loop stent with string in place. Specimen sent pathology: Left ureteral stone fragments for chemical analysis. Consultations: None. Findings: No residual stones in left distal ureter after completion of case, good stent position on fluoroscopy I identified the patient and participated in the time-out.: Yes Procedure Operation Date: 06/18/19 13:00 Actual Procedures p Cystoscopy, Left Retrograde Pyelogram, Left Semirigid Ureteroscopy, Laser Lithotripsy, Basket stone extraction, Left Ureteral Stent Insertion(Left) - Elmer Brizuela MD Brief history: Patient is a pleasant 63-year-old male who is here today for his first episode of stone disease and left ureteral colic. His pain has abated somewhat but KUB this a.m. demonstrates a lack of change in the position of the stone. After discussion of risks and benefits of various forms of management he is decided upon acute endoscopic management today. Please see urology progress notes for further details. Due to quinolone allergies he is covered with intravenous Ancef. SCDs were used for DVT prophylaxis. Informed consent obtained from the patient and queries answered. Procedure: Patient was properly identified and brought into the operative suite after identification of appropriate consent of the chart. General anesthesia with laryngeal mask was initiated and patient was prepped and draped in the standard fashion for this procedure. Full timeout procedure was followed. 22 [place] rigid cystoscope was passed into the bladder under direct visualization demonstrating a normal urethra and minimally obstructive prostate gland with a slightly elevated bladder neck. Bladder was surveyed in its entirety demonstrating a tiny ureterocele on the right-hand side and mounding of the left ureter consistent with a possible distal stone. No intravesical lesions or papillary masses were appreciated. Left-sided ureteral orifice was cannulated using an open-ended catheter and gentle retrograde pyelography was performed. This demonstrated mild to moderate hydronephrosis up to the level of the kidney. Sensor tip wire was advanced into the left kidney and uses a safety wire until the end of the case. Bladder was emptied and cystoscope was backloaded out. A long semirigid ureteroscope was inserted into the bladder and into the left ureter without the need for dilation. Stone was immediately encountered consistent with the patient's legislative advocate imaging findings. 200 m laser was used to fragment the stone into 2 pieces to allow for easier removal. These were grasped using a 0 tip basket and removed from the ureter and atraumatic fashion. They were sent for chemical analysis. Ureteroscope was reintroduced into the ureter without difficulties or resistance and advanced up to the proximal third of the ureter with no evidence of other stones, papillary masses, stricture or abnormalities being seen. Complete exit ureteroscopy confirmed these findings. Cystoscope was backloaded over the safety wire and a 6 [place] 28 cm loop stent was advanced with an incomplete coil in the upper pole of the kidney and redundant loops within the bladder. Cystoscope was backloaded off of the string and reintroduced to confirm the intravesical location of the coils. String was taped to the left side of the phallus using Steri-Strips and benzoin. Bladder was drained prior to removal of the cystoscope. Anesthesia was reversed and patient was transferred to the recovery room in stable condition. Follow-up CARE: Patient should be stable for discharge home later today. Would consider covering with a short course of antibiotics e.g. nitrofurantoin on discharge. Would ensure the patient has Pyridium and narcotic pain medication. Will arrange for outpatient follow-up for stent removal and stone management. Principles of lemonade therapy have been discussed with the patient prior to the OR. Patient to contact our service with any fevers, chills, nausea, vomiting or difficulties in the postoperative period. Surgeon Elmer Brizuela MD Coach Operator None Estimated Blood Loss 0 Findings Consistent with Post-Op Diagnosis Specimens Left ureteral stones for chemical analysis Description of Procedure See above I attest to the content of the Intraoperative Record and any orders documented therein. Any exceptions are noted below.
[2019-06-18] MEDS: fentaNYL citrate 100 MCG/2 ML VIAL IV PRN ×2 (14:02→14:07)
--- NOTE | 2019-06-18 14:18 | Anesthesiology Progress Note ---
Date of Service June 18, 2019 Anesthesia Post Procedure Vital Signs Vital Signs: Temp Pulse Pulse Pulse Resp BP BP 06/18/19 14:15 80 15 121/77 06/18/19 14:05 78 14 139/76 06/18/19 13:55 92 H 21 126/78 06/18/19 13:45 85 12 120/70 06/18/19 13:39 37.8 C H 89 12 128/74 06/18/19 08:02 37.0 C 88 18 127/77 06/18/19 04:00 36.9 C 89 20 118/58 L 06/18/19 00:50 84 06/17/19 23:53 36.7 C 79 18 156/79 H 06/17/19 23:47 06/17/19 23:00 73 20 129/72 06/17/19 22:08 06/17/19 22:07 06/17/19 22:03 71 20 130/86 06/17/19 20:30 68 18 152/86 H 06/17/19 19:48 76 18 135/83 06/17/19 17:48 83 18 142/78 H 06/17/19 17:10 76 16 148/83 H 06/17/19 15:19 36.4 C L 79 16 130/69 Pulse Ox Pulse Ox 06/18/19 14:15 98 06/18/19 14:05 100 06/18/19 13:55 100 06/18/19 13:45 100 06/18/19 13:39 98 06/18/19 08:02 96 06/18/19 04:00 96 06/18/19 00:50 06/17/19 23:53 99 06/17/19 23:47 98 06/17/19 23:00 100 06/17/19 22:08 97 06/17/19 22:07 88 L 06/17/19 22:03 99 06/17/19 20:30 99 06/17/19 19:48 99 06/17/19 17:48 98 06/17/19 17:10 98 06/17/19 15:19 98 Pain Intensity Left Lower Abdomen: Pain Intensity: 0 Penis: Pain Intensity: 3 Transfer of Care Handoff Completed per policy Notes Mental Status: alert / awake / arousable Patient Amnestic to Procedure: Yes Nausea / Vomiting: adequately controlled Pain: adequately controlled Airway Patency, RR, SpO2: stable & adequate BP & HR: stable & adequate Hydration State: stable & adequate Anesthetic Complications: no major complications apparent
--- NOTE | 2019-06-18 15:01 | Fluoroscopy Report ---
FL retrograde includes kub CLINICAL HISTORY: CYSTO COMPARISON STUDY: Abdomen 06/18/2019 FLUOROSCOPY TIME: 32 seconds NUMBER OF FLUOROSCOPIC IMAGES: 6 FINDINGS: Retrograde cannulation of left ureter with opacification of the left ureter showed a possib le 2 filling defects of the distal ureter. Visible bilaterally lithotripsy and stent placement. IMPRESSION: Laser lithotripsy and stent placement. The above report was generated using voice recognition software. It may contain grammatical, syntax or spelling errors. Electronically signed by: Garett De La Cruz M.D. 06/18/2019 3:00 PM
--- NOTE | 2019-06-18 15:51 | Discharge Summary ---
Date of Service June 18, 2019 Admission HPI Per Admitting Provider 63-year-old male with a recent history of thyroiditis presents with left-sided abdominal pain over the course of 1 day. Patient thought this was acute constipation in the setting of hypothyroidism. In the ED, he was found to have left hydronephrosis with a 5 mm stone. He denies any dysuria or hematuria. He denies fevers, nausea, vomiting or diarrhea. He does not have a history of kidney stones, but describes a family history of kidney stones. He is otherwise healthy and does not take many medications. He describes being diagnosed with thyroiditis sometime in the middle of April. He was initially treated for a sinus infection and subsequently found to have an enlarged swollen thyroid. He experienced thyroid storm without need for hospitalization and has subsequently been seen by endocrinology in [place]. He is not on thyroid medications as they see his hypothyroidism as a temporary phase of the illness course. Review of systems Patient denies fevers, chills, night sweats, shortness of breath, cough, chest pain, abdominal pain, nausea/vomiting/diarrhea, dysuria, hematuria Admission Exam Per Admitting Provider Constitutional: WD/WN, vitals as above Eyes: PERRL, conjunctivae normal, anicteric sclerae ENMT: external ear and nose normal, oropharynx normal Neck: trachea midline, no thyromegaly Respiratory: normal respiratory effort, lungs clear to auscultation Cardiovascular: RRR, no murmur, no edema Gastrointestinal (Abdomen): normal bowel sounds, soft, nontender, no hepatosplenomegaly Musculoskeletal: no cyanosis or clubbing, extremities motor strength 5/5 Skin: no rashes, warm and dry Neurologic: PERRL, EOMI, accommodation nl, no face palsy, no dysarthria Psychiatric: A+Ox3, euthymic affect Principal Diagnosis L ureterolithiasis Discharge Exam Constitutional WD/WN, vitals as above Eyes PERRL, conjunctivae normal, anicteric sclerae ENMT external ear and nose normal, oropharynx normal Neck normal visual inspection and trachea midline Respiratory normal respiratory effort, lungs clear to auscultation Cardiovascular RRR, no murmur, no edema Gastrointestinal (Abdomen) normal bowel sounds, soft, nontender, no hepatosplenomegaly Skin no rashes, warm and dry Psychiatric A+Ox3, euthymic affect Genitourinary no CVA tenderness Discharge Data Allergies Allergy/AdvReac Type Severity Reaction Status Date / Time Quinolones Allergy Mild JOINT PAIN Unverified 05/12/19 10:04 SULFA Allergy Severe unknown Uncoded 05/12/19 10:04 Consultations 06/17/19 21:09 ED Decision to Admit Stat 06/17/19 23:27 Consult Urology Routine Procedures Performed Operation Date: 06/18/19 13:00 Actual Procedures p Cystoscopy, Left Retrograde Pyelogram, Left Semirigid Ureteroscopy, Laser Lithotripsy, Basket stone extraction, Left Ureteral Stent Insertion(Left) - Elmer Brizuela MD Ordered Studies 06/17/19 16:43 US renal/blad retro comp Stat 06/18/19 10:54 FL retrograde includes kub Routine Hospital Course (1) Calculus of distal left ureter: 63-year-old male without significant past medical history except for recent bout of thyroiditis and subsequent hypothyroidism presents with intractable left abdominal pain. He was found to have a 5 mm obstructing ure thral stone and left hydronephrosis. His pain was adequately treated in the emergency room, but the patient did develop hypoxia. He was given supplemental oxygen and observed. Left ureteral stone, left hydronephrosis -KUB and Renal US noted a 5mm obstructing urethral stone and left hydronephrosis Treated initially with supportive fluids, pain control -Scheduled Toradol, PRN Tylenol Percocet for mild to moderate pain scale 1-5, Dilaudid for moderate to severe pain scale 6-10 -Patient noted around 9PM 06/17/19 that his pain had completely subsided, noted he required no pain medications overnight. -Morning KUB still noted stone, unchanged in location. -After discussion with Urology, underwent Cystoscopy with laser lithotripsy and basket stone extraction and placement of a L ureteral stent. -Patient tolerated the procedure well and was to have future follow up in the outpatient setting with Urology. -Patient had prior script for Oxycodone from ED visit, fill upon discharge. -Discharged with Nitrofurantoin for prophylaxis, Pyridium, Flomax, and Zofran. Hypoxia Admitted to med/telemetry secondary to hypoxia following pain medications secondary to respiratory depression. -No further hypoxia from there on. Hypothyroidism status post thyroiditis Treat constipation, MiraLAX as needed, continue in outpatient -Continue follow up in the outpatient setting. CODE STATUSfull DietFull upon discharge DVT prophylaxis inpatient with SCDs, encouraged ambulation (2) Intractable abdominal pain: (3) Hypoxia: (4) Constipation: (5) Hypothyroidism: Total Time Total Time Spent Total Time Spent (In Minutes): see attending attestation Discharge Plan Discharge Items Patient Disposition: Home - Self-Care Reason For Visit: KIDNEY STONE,HYDRONEPHROSIS Discharge Diagnosis: left distal ureteral stone with intractable colic Activity: Resume your previous activity Non-emergency contact: Primary Care Provider and Bootmaker Call non-emergency contact if: you have any medication questions, your pain is not controlled and your temperature is above 101 Follow-up/Referrals: Stone Reza MD [Primary Care Provider] - Diet: Regular Addtl Attending Provider Instructions: Mr. Bragg, you were seen and evaluated yesterday evening for intractable L sided abdominal pain that was unrelieved from any position whatsoever. Both an abdominal x-ray and ultrasound were taken which revealed a 5mm obstructing kidney stone at the distal portion of your L ureter. You were treated with IV fluids and IV pain medications. The pain medications at that time made it so that you would in your words "forgot to breath" and you were admitted for further pain management and evaluation of your hypoxia. You were seen by Urology which recommended a procedure where they would look into your bladder and ureter, remove the stone, and place a stent that would allow for further drainage. You chose to undergo the procedure today and upon completion have noted significant improvement in your pain. You are being discharged today with the expectation to follow up with urology in the near future for management of the placed stent. Please follow the remaining instructions below: -Follow up with your Urologist in the near future for management and follow up of your Ureteral stent. -Follow up with your PCP in the next 1 week. -Please complete the antibiotic being provided as prescribed, Nitrofurantoin 100mg by mouth at night x 3 days -Please take all of your remaining medications as prescribed. -If you have any questions, please contact the Urology Office with concerns of fever, chills, nausea, vomiting, or difficulties. Pending Studies at Discharge: No Studies:: XR KUB/Abdomen 1 view CLINICAL HISTORY: stone nephrocalcinosis COMPARISON STUDY: 06/17/2019 FINDINGS: Similar calcification overlying the distal left ureter. No change in position compared to the prior study. Nonobstructive bowel pattern. Minimal nonobstructive ileus. IMPRESSION: Unchanged calcification overlying the distal aspect left ureter. No change from the prior exam with findings suggestive of either distal left ureteral calculus versus vascular calcification The above report was generated using voice recognition software. It may contain grammatical, syntax or spelling errors. Electronically signed by: Garett De La Cruz M.D. 06/18/2019 8:19 AM Stand-Alone Forms: Call Back Authorization, My [facility], Smoking Cessation Medications and DC Order Prescriptions: New tamsulosin [Flomax] 0.4 mg capsule 0.4 mg PO DAILY Qty: 7 RF: 0 ondansetron 4 mg tablet,disintegrating 4 mg PO Q6H PRN (Reason: nausea and vomiting) Qty: 10 RF: 0 oxycodone 5 mg tablet 5 mg PO Q4H PRN (Reason: pain) Qty: 15 RF: 0 nitrofurantoin macrocrystal 100 mg capsule 100 mg PO HS Qty: 3 RF: 0 phenazopyridine [Pyridium] 100 mg tablet 100 mg PO TID PRN (Reason: pain) Qty: 18 RF: 0 Continued cholecalciferol (vitamin D3) 1,000 unit (25 mcg) tablet 1,000 units PO QAM RF: 0 multivitamin Tablet 1 tab PO QAM RF: 0 iron 159 mg (45 mg iron) Tablet Extended Release 159 mg PO QAM RF: 0 turmeric 400 mg Capsule 400 mg PO QAM RF: 0 Discharge Orders: Discharge Order (Routine); Ordered 06/18/19 Ordered By: Abraham Francisco Admission Data Admit Date/Time: 06/17/19 22:57 Attending Provider: Stephanie Ferguson Admit Provider: Perico Rand Primary Care Provider: Stone Reza Other Providers: Lilly Linares ; Elmer Brizuela I. Other Interventions: Discharge Summary Assessment (RN) Last Done: 06/18/19 16:59 DC Date/Time DO NOT enter until pt leaves facility: 06/18/19 17:25 Supervising Physician Co-Signing Physician Notes Resident Physician Supervision Note: I independently interviewed and examined the patient and verified the elaine hist ory and physical, reviewed labs and image studies, discussed the case with the resident Dr. Francisco and agree with the findings and care plan. Resident Activity Tracking Resident Involvement: Resident Care Provided Care Provided: [facility]
[2019-06-19 06:23] LABS: Estimated Average Glucose 111 mg/dl; Hemoglobin A1C 5.5 % (4.5-5.6)
[2019-06-27 07:57] LABS: Component 2 DNR
== END 2019-06-18 17:25 | disposition home or self-care (01) | DRG 661 ==
LOC: ED 15:12 → 2N 22:57 → SUATTDRO 22:57 → 2N 23:10